=== PATIENT | female | born 1970 | race Caucasian/White ===

== ENCOUNTER → 2022-03-12 | Outpatient (CLI) | payer BC | LOC: MAMMO 11:33 | PROVIDERS: ATTEND Internal Medicine | DX: Z12.31 Encounter for screening mammogram for malignant neoplasm of breast (principal); M85.88 Other specified disorders of bone density and structure, other site; S53.491A Other sprain of right elbow, initial encounter; S93.491A Sprain of other ligament of right ankle, initial encounter; R60.9 Edema, unspecified | CPT/HCPCS: 77067; 77080 ==

== ENCOUNTER → 2022-03-26 | Outpatient (CLI) | payer BC | LOC: MRI 10:44 | PROVIDERS: ATTEND Internal Medicine | DX: S93.401D Sprain of unspecified ligament of right ankle, subsequent encounter (principal) ==